=== PATIENT | male | born 1990 | race American Indian/Alaskan Native ===

== ENCOUNTER 2017-05-06 18:12 | Emergency (ER) | payer SELFPAY ==
[2017-05-06 18:30] VITALS: BP 106/72
[2017-05-06] MEDS ORDERED: MOTRIN PO ONE (23:06)
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
== END 2017-05-07 00:15 | disposition home or self-care (01) ==
LOC: ED 18:12
DX: S13.4XXA Sprain of ligaments of cervical spine, initial encounter (principal); F17.200 Nicotine dependence, unspecified, uncomplicated; V49.59XA Passenger injured in collision with other motor vehicles in traffic accident, initial encounter; X58.XXXA Exposure to other specified factors, initial encounter; Y93.89 Activity, other specified; Y92.89 Other specified places as the place of occurrence of the external cause; Y99.8 Other external cause status
CPT/HCPCS: 99282